=== PATIENT | female | born 1995 | race Caucasian/White ===

== ENCOUNTER 2016-11-06 19:00 | Inpatient (IN) | payer OTHER ==
--- NOTE | ~2016-11-06 | DS ---
Unit #: [id number] #: [id number] Patient: [facility] ROB[facility] [id number] [facility] [address] [place] [address] [id number] I MR#: [id number] NAME: MAURI ROBERT ROOM: P202 Age: 21 Sex: F Admission Date: 11/06/2016 : 1995 Discharge Date: 11/12/2016 Attending Physician: Lynn Ruano M.D. Primary Care Physician: Generic Doctor Not In System DISCHARGE SUMMARY IDENTIFYING DATA Ms. Robert is a 21-year-old, single, white female who is a resident of [place], [place] and was self-referred to the hospital on voluntary basis. DISCHARGE DIAGNOSES Psychiatric: Major depressive disorder, recurrent, moderate, without psychotic features. Medical: None. Stressors: Moderate psychosocial stressors. HISTORY OF PRESENT ILLNESS Please see initial psychiatric evaluation for details. PAST PSYCHIATRIC HISTORY Please see initial psychiatric evaluation for details. PAST MEDICAL HISTORY Please see initial psychiatric evaluation for details. HOSPITAL COURSE The patient was [facility] and was oriented to the hospital environment. Routine p.r.n. medications were initiated, and she was started back on her home medications and Celexa 20 mg a day was initiated as an antidepressant and she was closely monitored. She was taking the medications regularly and was tolerating them fairly well and was able to show a decent therapeutic response with improvement in depression and anxiety, and was denying any suicidal ideations, intent, or plan and was not seen to be danger to self or anyone else and as such, it was decided that she will be discharged home and will continue treatment on an outpatient basis. DISCHARGE MEDICATIONS Celexa 20 mg a day for depression. DISCHARGE CONDITION Stable. PROGNOSIS Fair. Dictated by... Lynn Ruano M.D. Unit #: [id number] #: [id number] Patient: MAURI ROBERT IAA/modl TD: 11/12/2016 11:12 JOB #: [id number] DISCHARGE SUMMARY Page 1 of 1 X Lynn Ruano MD X DISCHARGE SUMMARY
--- NOTE | ~2016-11-06 | PN ---
Unit #: [id number] #: [id number] Patient: MAURI ROBERT [id number] [facility] [address] [place] [address] [id number] I MR#: [id number] NAME: MAURI ROBERT ROOM: P202 Age: 21 Sex: F Admission Date: 11/06/2016 : 1995 Attending Physician: Lynn Ruano M.D. Admitting Physician: Lynn Ruano M.D. Primary Care Physician: Generic Doctor Not In System [facility] PROGRESS NOTES DATE November 08, 2016 DISCUSSION Ms. Robert is a 21-year-old white female, who was seen today and chart was reviewed and the case was discussed with the staff. The patient has been anxious, withdrawn, and seclusive to herself and has been exhibiting some persistent depressive symptoms. She has been taking medications and tolerating them fairly well with no reported side effects. MENTAL STATUS EXAMINATION Young white female, who was casually dressed with fair personal hygiene and appears to be in no acute distress or discomfort. She was awake and alert on interaction with intact orientation. Her mood is anxious with a congruent affect. The patient denies any suicidal or homicidal ideations. Her insight and judgment remain slightly impaired. TREATMENT PLAN 1. We will continue her on her current treatment therapy, and will monitor her response, and make further adjustments as needed. 2. We will continue to followup. Dictated by... Daron Granados/jordan TD: 11/10/2016 10:06 JOB #: [id number] Unit #: [id number] #: [id number] Patient: MAURI ROBERT [facility] PROGRESS NOTES Page 1 of 1 X Lynn Ruano MD PROGRESS NOTE
--- NOTE | ~2016-11-06 | A ---
[facility] Nutrition Therapy DATE: 11/07/16 Patient: MAURI DOVE Physician: JOSÉ ANTONIOF Address: [address] Room/Bed: [address], Zip: [place] [address] Admit Date: 11/06/16 Date of : [birth year] Height: 5 6 Weight: 90 [phone] NUTRITIONAL ASSESSMENT: REASON: LOW BMI (14.7) PATIENT ADMITTED FOR DERESSION AND SI PMH: NONE Anthropometrics: HT: 66", WT: 91#, BMI: 14.7 Labs: 11/07/16- GLU: 122, ALL OTHER NUTRITIONAL LABS WNL Meds: DESYREL Assessment: PATIENT IS A 21 Y/O FEMALE ADMITTED FOR SI AND DEPRESSION. PATIENT IS CURRENTLY UNEMPLOYED, LIVES WITH HER FATHER, SMOKES <1/2 PPD AND WEEKLY MARIJUANA. PER NEEDS ASSESSMENT PATIENT STATED A POOR APPETITE WITH NO RECENT WEIGHT LOSS. DURING VISIT PATIENT STATED HER APPETITE HAS BEEN IMPROVING, AND THAT SHE HAS ALWAYS BEEN A VERY THIN INDIVIDUAL. PATIENT HAS NEVER BROKEN 100# AND SHE GETS REGULAR CHECK UPS WITH HER PCP. PATIENT'S NUTRITIONAL LABS WERE WNL. PATIENT SEEMED VERY THIN, BUT WELL NOURISHED. THERE ARE NO SKIN OR GI ISSUES NOTED ATT OTHER THAN A RASH ON PATIENT'S TRUNK. PATIENT DENIED ANY N/V/D/C. PATIENT IS ON A REGULAR DIET WITH NO CAFFEINE. Dx: NO NUTRITION DX Intervention: REGULAR DIET, NO CAFFEINE, MEDS PER MD, PSYCH Monitoring, Evaluation and Goals: 1. ADEQUATE PO INTAKES >50% OF MEALS 2. PREVENT, CORRECT MICRO/MACRO NUTRIENT DEFICIENCIES 3. WEIGHT; PREVENT ANY WEIGHT LOSS MONITOR: WEIGHTS, LABS, PO/FLUID INTAKES Recommendations: 1. CONTINUE REGULAR DIET TOLERATED. OFFER SNACKS BETWEEN MEALS. IF PATIENT HAS C/O HUNGER PLEASE ORDER LARGE PORTION ENTREES AND RD WILL APPROVE 2. ENCOURAGE ADEQUATE PO AND FLUID INTAKES 3. OBTAIN WEIGHTS ROUTINELY (EVERY 3-4 DAYS) 4. IF PO INTAKES ARE BELOW 50% OF MEALS PLEASE ORDER ENSURE TID TO PROMOTE ADEQUATE PO AND FLUID INTAKES [facility] Nutrition Therapy DATE: 11/07/16 Patient: MAURI DOVE Physician: JOSÉ ANTONIOF Address: [address] Room/Bed: [address], Zip: [place] [address] Admit Date: 11/06/16 Date of : 95 Height: 5 6 Weight: [phone] TO F/U PER PROTOCOL AND PRN R/T PATIENT NOT AT NUTRITIONAL RISK ATT Respectfully, YAZ PITTS, RD, LD Food and Nutritional Services [facility] cc: client file
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
--- NOTE | ~2016-11-06 | PN ---
Unit #: [id number] #: [id number] Patient: MAURI DOVE [id number] [facility] [address] [place] [address] [id number] I MR#: [id number] NAME: MAURI DOVE ROOM: P202 Age: 21 Sex: F Admission Date: 11/06/2016 : 1995 Attending Physician: Lynn Ruano M.D. Admitting Physician: Lynn Ruano M.D. Primary Care Physician: Generic Doctor Not In System [facility] PROGRESS NOTES SUBJECTIVE who was seen today and chart was reviewed, and case was discussed with the staff. She has been anxious, withdrawn, cooperative with treatment recommendations and has been taking the medications and tolerating them fairly well with no reported side effects. MENTAL STATUS EXAMINATION Young white female, who was casually dressed with fair personal hygiene, appears to be in no acute distress or discomfort. She was awake and alert on interaction with intact orientation. Her mood was anxious with a congruent affect. The patient denies any suicidal or homicidal ideations. Her insight and judgment remain slightly impaired. TREATMENT PLAN 1. We will continue on current medications and treatment protocol. We will monitor her response to medications and make further adjustments as needed. 2. We will continue to follow up. Dictated by... Daron Granados/willie TD: 11/11/2016 17:07 JOB #: [id number] [facility] PROGRESS NOTES Page 1 of 1 X Lynn Ruano MD PROGRESS NOTE
--- NOTE | ~2016-11-06 | HP ---
Unit #: [id number] #: [id number] Patient: DEMOND DOVE [id number] [facility] [address] [place] [address] [id number] I MR#: [id number] NAME: DEMOND DOVE ROOM: P202 Age: 21 Sex: F Admission Date: 11/06/2016 : 1995 Attending Physician: Lynn Ruano M.D. Admitting Physician: Lynn Ruano M.D. Primary Care Physician: Generic Doctor Not In System HISTORY AND PHYSICAL HISTORY OF PRESENT ILLNESS Demond is a 21 year old admitted to [address] [place] [address] with depression and verbalizing wanting to hurt herself. PAST MEDICAL HISTORY Nothing significant. PAST SURGICAL HISTORY PE tubes. ALLERGIES No known drug allergies. SOCIAL HISTORY She smokes, drinks alcohol, uses illicit drugs on occasion. FAMILY HISTORY Medically noncontributory. 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 She denies prostituting. REVIEW OF SYSTEMS CONSTITUTIONAL: No fever or chills. HEENT: Denies any sore throat, ear pain or runny nose. CARDIOVASCULAR: Denies chest pain, irregular heart rhythm or palpitations. CHEST: Denies shortness of breath or cough. No hemoptysis. GASTROINTESTINAL: Denies nausea, vomiting, diarrhea or chronic constipation. ENDOCRINE: Denies history of increased thirst or urination. No recent significant weight loss or gain. GENITOURINARY: Denies dysuria, frequency, or hematuria. SKIN: Denies any rashes. HEMATOLOGIC: Denies history of increased bleeding or bruising. MUSCULOSKELETAL: Denies any hot, swollen joints. No generalized muscle pain. NEUROLOGIC: Denies problems with vision or speech. No frequent, severe headaches. No numbness, tingling or weakness in any extremities. Denies loss of bladder or bowel control. CURRENT MEDICATIONS 1. Desyrel p.r.n. 2. Milk of Magnesia p.r.n. Unit #: [id number] #: [id number] Patient: DEMOND DOVE 3. Maalox p.r.n. 4. Tylenol p.r.n. PHYSICAL EXAMINATION GENERAL: Alert, well-nourished, in no apparent distress. VITAL SIGNS: Blood pressure 113/74, heart rate 80, respirations 16, temperature 98.6. WEIGHT: 91 pounds. HEIGHT: 5 feet 4 inches. SKIN: Warm and dry without rash or lesion. HEENT: Normocephalic. TMs not viewed. Oral and nasal passages clear. Conjunctivae clear. PERRLA. EOMs intact. NECK: Supple without lymphadenopathy or thyromegaly. HEART: Regular rate and rhythm without murmur. LUNGS: Clear. ABDOMEN: Soft, nontender. : Not done. EXTREMITIES: No evidence of cyanosis, clubbing or edema. Moves all without focal deficit. NEUROLOGICAL: Grossly within normal limits. Cranial Nerves: II: Visual toro are intact. III, IV AND : Extraocular movements are intact. Pupils are equal, round and reactive to light. V: Facial sensation is grossly normal. VII: Facial movements and expression are normal. VIII: Auditory acuity grossly intact. IX, X: Uvula is midline. Phonation is normal. XI: Patient shrugs shoulders and turns head normally. XII: Tongue protrudes in the midline. Sensory and Motor Function: Sensory and motor sensation is grossly normal. Motor: moves all extremities well. Coordination: Gait is normal. Deep Tendon Reflexes: Intact. IMPRESSION Psychiatric admission. RECOMMENDATIONS PSYCHIATRIC: Per psychiatrist. MEDICAL: See no contraindication to participate in facility's activities. MEDICAL PROGNOSIS Good. MEDICAL CONDITION Stable. Dictated by... Yolanda Vásquez P.A.-C. for Daron Cuevas/jeremias TD: 11/07/2016 20:43 JOB #: [id number] Unit #: [id number] #: [id number] Patient: [facility] HISTORY AND PHYSICAL Page 1 of 1 X Yolanda Vásquez HISTORY AND PHYSICAL
--- NOTE | ~2016-11-06 | PN ---
Unit #: [id number] #: [id number] Patient: MAURI ROBERT [id number] [facility] [address] [place] [address] [id number] I MR#: [id number] NAME: MAURI ROBERT ROOM: P202 Age: 21 Sex: F Admission Date: 11/06/2016 : 1995 Attending Physician: Lynn Ruano M.D. Admitting Physician: Lynn Ruano M.D. Primary Care Physician: Generic Doctor Not In System [facility] PROGRESS NOTES DATE 11/09/2016 DISCUSSION Ms. Robert is a 21-year-old white female who was seen today and chart was reviewed and case was discussed with the staff. She has been anxious, withdrawn and seclusive to herself. Meanwhile, she has been cooperative with treatment recommendations as she has been taking the medications and tolerating them fairly well with no reported side effects. MENTAL STATUS EXAMINATION Young white female who was casually dressed with fair personal hygiene, appears to be in no acute distress or discomfort. She was awake and alert on interaction with intact orientation. Her mood was anxious with congruent affect. She denies any suicidal or homicidal ideations. Her insight and judgement remains slightly impaired. TREATMENT PLAN 1. We will continue her on her current medications and treatment protocol. We will monitor her response to the medication and make further adjustments as needed. 2. We will continue to follow up. Dictated by... Daron Granados/graciela TD: 11/12/2016 01:43 JOB #: [id number] Unit #: [id number] #: [id number] Patient: MAURI ROBERT [facility] PROGRESS NOTES Page 1 of 1 X Lynn Ruano MD PROGRESS NOTE
--- NOTE | ~2016-11-06 | PN ---
Unit #: [id number] #: [id number] Patient: MAURI ROBERT [id number] [facility] [address] [place] [address] [id number] I MR#: [id number] NAME: MAURI ROBERT ROOM: P202 Age: 21 Sex: F Admission Date: 11/06/2016 : 1995 Attending Physician: Lynn Ruano M.D. Admitting Physician: Lynn Ruano M.D. Primary Care Physician: Generic Doctor Not In System [facility] PROGRESS NOTES DATE OF SERVICE: 11/10/2016 SUBJECTIVE Ms. Robert is a 21-year-old white female who was seen today and chart was reviewed and case was discussed with the staff. She has been anxious, withdrawn, and rather seclusive to herself. Meanwhile, she has been cooperative with treatment recommendations and has been taking the medications and tolerating them fairly well. MENTAL STATUS EXAMINATION Young white female who was casually dressed with fair personal hygiene, appears to be in no acute distress or discomfort. She was awake and alert on interaction with intact orientation. Her mood was anxious with a congruent affect. She denies any suicidal or homicidal ideations. Her insight and judgment remain slightly impaired. TREATMENT PLAN 1. We will continue her on her current medications and treatment protocol. We will monitor her response to the medications and make further adjustments as needed. 2. We will continue to follow up. Dictated by... Lynn Ruano M.D. BHARATH/willie TD: 11/10/2016 23:38 JOB #: [id number] [facility] PROGRESS NOTES Page 1 of 1 X Lynn Ruano MD PROGRESS NOTE
[2016-11-07 09:43] LABS: BASOPHIL# 0.1 X10e3 (0-0.3); BASOPHIL% 1.3 % (0-2.5); EOSINOPHIL% 0.4 % (0.0-7.0); HEMATOCRIT 39.9 % (35.0-45.0); HEMOGLOBIN 13.1 gm/dL (12.0-16.0); LYMPHOCYTE# 2.5 X10e3 (1.0-3.5); LYMPHOCYTE% 46.8 % (17.0-45.0); MEAN CELL VOLUME 81.5 FL (83-96); MEAN CORPUSCULAR HEMOGLOBIN 26.7 PG (28-34); MEAN CORPUSCULAR HGB CONC 32.7 g/dL (30-36); MEAN PLATELET VOLUME 8.4 FL (6.5-11.5); MONOCYTE# 0.5 X10e3 (0-1.0); MONOCYTE% 8.4 % (3.0-12.0); NEUTROPHIL# 2.3 X10e3 (1.5-7.1); NEUTROPHIL% 43.1 % (40-75); PLATELET COUNT 216 X10e3 (140-420); RED CELL DISTRIBUTION WIDTH 13.6 % (11.0-15.5); WHITE BLOOD COUNT 5.4 X10e3 (4.0-10.5)
[2016-11-07 09:45] LABS: DIFF IND NO
[2016-11-07 10:30] LABS: ALBUMIN SERUM 4.5 g/dL (3.5-5.0); BILIRUBIN,TOTAL 0.8 mg/dL (0.2-2.0); BUN/CREATININE RATIO 13.75; CALCIUM SERUM 9.3 mg/dL (8.4-10.2); CREATININE SERUM 0.8 mg/dL (0.6-1.4); GLOM FILT RATE Estimated 105.5 mL/min (>60); POTASSIUM 4.7 mmol/L (3.5-5.1); PROTEIN TOTAL SERUM 7.3 g/dL (6.0-8.3)
[2016-11-08 11:33] LABS: URINE APPEARANCE TURBID; URINE BILIRUBIN NEG (NEG); URINE BLOOD NEG (NEG); URINE COLOR YELLOW; URINE GLUCOSE NEG (NEG); URINE KETONE NEG (NEG); URINE LEUKOCYTE ESTERASE NEG (NEG); URINE NITRATE NEG (NEG); URINE PROTEIN NEG (NEG); URINE SPECIFIC GRAVITY 1.022 (1.003-1.035); URINE UROBILINOGEN 0.2 MG/DL (NEG)
[2016-11-08 12:39] LABS: AMPHETAMINE NEG (NEG); BARBITURATES NEG (NEG); BENZODIAZEPINES NEG (NEG); COCAINE NEG (NEG); MARIJUANA NEG (NEG); OPIATES NEG (NEG); TRICYCLIC ANTIDEPRESSANTS NEG (NEG); U METHADONE NEG (NEG)
== END 2016-11-12 09:57 | disposition home or self-care (01) | DRG 885 ==
LOC: P2S 21:59
PROVIDERS: Psychiatry & Neurology Psychiatry
DX: F33.1 Major depressive disorder, recurrent, moderate (principal); R45.851 Suicidal ideations; F17.210 Nicotine dependence, cigarettes, uncomplicated
CPT/HCPCS: 80053; 80307; 81003; 84703; 85025